=== PATIENT | female | born 1990 | race Caucasian/White ===

== ENCOUNTER 2024-09-15 21:32 | Emergency (ER) | payer BC ==
[~2024-09-15] VITALS: Ht 160 cm; Wt 65.9 kg
[2024-09-15 21:42] VITALS: TEMP 98.3
[2024-09-15] MEDS ORDERED: TRAM1CAP15 PO (21:51)
[2024-09-16] MEDS: LORazepam 1 MG TAB PO ONE (00:20)
[2024-09-16 01:15] VITALS: BP 167/96; O2SAT 99
== END 2024-09-16 01:42 | disposition home or self-care (01) ==
LOC: M ED 21:32
DX: M48.02 Spinal stenosis, cervical region (principal); R06.4 Hyperventilation; F41.9 Anxiety disorder, unspecified; E06.3 Autoimmune thyroiditis